=== PATIENT | female | born 1995 | race Caucasian/White ===

== ENCOUNTER 2017-09-11 19:01 | Emergency (ER) | payer OTHER | END 2017-09-11 19:35 | disposition home or self-care (01) | LOC: E/R 19:01 | DX: H60.501 Unspecified acute noninfective otitis externa, right ear (principal) | CPT/HCPCS: 99283; Z7502 ==

== ENCOUNTER 2017-09-12 02:58 | Emergency (ER) | payer OTHER ==
[2017-09-12] MEDS: HYDROCODONE/APAP (5/325) TAB PO (04:09)
== END 2017-09-12 04:55 | disposition home or self-care (01) ==
LOC: FTE 02:58
DX: H60.501 Unspecified acute noninfective otitis externa, right ear (principal)
CPT/HCPCS: 99283; Z7502